=== PATIENT | female | born 1990 | race African-American/Black ===

== ENCOUNTER 2021-08-14 07:11 | Emergency (ER) | payer MEDICAID, OTHER ==
[~2021-08-14] VITALS: Ht 165.1 cm; Wt 64.0 kg
[2021-08-14] MEDS ORDERED: ONDANSETRON HCL 4MG/2ML INJ IV STA (07:39)
[2021-08-14] MEDS ORDERED: PANTOPRAZOLE SODIUM 40 MG/VIAL IV STA (07:39)
[2021-08-14] MEDS ORDERED: MORPHINE SULFATE 4 MG/ML CPJ (NOT FOR IM USE) IV STA (07:39)
[2021-08-14] MEDS ORDERED: SODIUM CHLORIDE 0.9% 1,000 ML IV ONE (07:45)
[2021-08-14 08:35] LABS: BASOPHILS % 0.1 % (0.0-2.0); HEMATOCRIT. 39.3 % (36.0-48.0); HEMOGLOBIN. 12.8 g/dL (12.0-16.0); LYMPHOCYTES % 8.4 % (20.0-50.0); MEAN CORPUSCULAR VOLUME 70.4 fL (81.0-99.0); MEAN PLATELET VOLUME 8.4 fl (7.4-10.4); MONOCYTES % 6.6 % (2.0-8.0); NEUTROPHILS % 84.9 % (40.0-76.0); PLATELET 366 x1000/uL (130-400); RED BLOOD CELL COUNT 5.57 mill/uL (4.2-5.4); RED CELL DISTRIBUTION WIDTH 15.3 % (11.6-14.6)
[2021-08-14 08:44] LABS: CHLORIDE 110 mEq/L (98-107)
[2021-08-14 08:45] LABS: HCG SCREEN NEGATIVE
[2021-08-14 08:51] LABS: ETHANOL BLOOD < 10 mg/dL
[2021-08-14] MEDS ORDERED: KETOROLAC 30MG/ML VIAL IV STA (09:24)
[2021-08-14] MEDS ORDERED: ONDANSETRON HCL 4MG/2ML INJ IV ONE (09:30)
[2021-08-14 10:00] VITALS: BP 140/64
[2021-08-14] MEDS ORDERED: IOHEXOL-300 100 ML BOTTLE ONE (10:39)
[2021-08-14] MEDS ORDERED: VISCOUS LIDOCAINE 2% 15 ML UDC PO STA (11:36)
[2021-08-14] MEDS ORDERED: MAGNESIUM/ALUMINUM HYDROXIDE/SIMETHICONE 30ML UDC PO STA (11:36)
[2021-08-14 12:10] LABS: CLARITY URINE CLEAR (CLEAR); COLOR URINE YELLOW (YELLOW); KETONES URINE 1+ (NEGATIVE); LEUKOCYTE ESTERASE URINE NEGATIVE (NEGATIVE); NITRITE URINE NEGATIVE (NEGATIVE); OCCULT BLOOD URINE 2+ (NEGATIVE); PH URINE 6.5 (4.5-8.0); PROTEIN URINE NEGATIVE (NEGATIVE); SPECIFIC GRAVITY URINE 1.057 (1.005-1.030); UROBILINOGEN URINE 0.2 E.U./dL (0.2-1.0)
[2021-08-14 12:20] LABS: *AMPHETAMINES SCREEN URINE NEGATIVE (NEGATIVE); *BARBITURATES SCREEN URINE NEGATIVE (NEGATIVE); *BENZODIAZEPINES SCREEN URINE NEGATIVE (NEGATIVE); *COCAINE SCREEN URINE NEGATIVE (NEGATIVE); METHADONE URINE SCREEN NEGATIVE (NEGATIVE); PHENCYCLIDINE URINE SCREEN NEGATIVE (NEGATIVE)
[2021-08-14 12:23] LABS: CANNABINOID URINE SCREEN PRESUMTIVE POSITIVE (NEGATIVE); OPIATES URINE SCREEN PRESUMTIVE POSITIVE (NEGATIVE)
[2021-08-14] MEDS ORDERED: ONDA4TAB11 PO (12:27)
[2021-08-14] MEDS ORDERED: IBUP-2028 MT (12:27)
[2021-08-14] MEDS ORDERED: MAG-55 MT (12:27)
[2021-08-14] MEDS ORDERED: PROT40 MT (12:27)
== END 2021-08-14 12:24 | disposition home or self-care (01) ==
LOC: ER 07:11
DX: K29.70 Gastritis, unspecified, without bleeding (principal); F12.10 Cannabis abuse, uncomplicated
CPT/HCPCS: 36415; 74177; 80053; 80305; 80320; 81003; 83690; 84703; 85025; 96361; 96374; 96375; 96376; 99285; C9113; J1885; J2270; J2405; J7030; Q9967; G0480

== ENCOUNTER 2021-08-15 16:38 | Emergency (ER) | payer MEDICAID ==
[~2021-08-15] VITALS: Ht 165.1 cm; Wt 55.0 kg
[~2021-08-15 16:38] MED LIST: IBUP-2028 MT; MAG-55 MT; ONDA4TAB11 PO; PROT40 MT
[2021-08-15] MEDS ORDERED: ONDANSETRON HCL 4MG/2ML INJ IM ONE (17:30)
[2021-08-15] MEDS ORDERED: KETOROLAC 60MG/2ML VIAL IM ONE (17:30)
[2021-08-15] MEDS ORDERED: HALOPERIDOL LACTATE 5MG/ML VIAL IM ONE (17:30)
[2021-08-15 20:05] VITALS: BP 108/63
[2021-08-15 20:18] LABS: CHLORIDE 112 mEq/L (98-107)
[2021-08-15 20:21] LABS: HCG SCREEN NEGATIVE
== END 2021-08-15 20:41 | disposition home or self-care (01) ==
LOC: ER 16:38
DX: R10.13 Epigastric pain (principal); F12.10 Cannabis abuse, uncomplicated; Z87.19 Personal history of other diseases of the digestive system; Z88.1 Allergy status to other antibiotic agents
CPT/HCPCS: 36415; 76705; 80053; 83605; 83690; 84703; 96372; 99284; J1630; J1885; J2405

== ENCOUNTER 2025-02-22 07:52 | Emergency (ER) | payer MEDICAID ==
[~2025-02-22] VITALS: Ht 160 cm; Wt 73.0 kg
[~2025-02-22 07:52] MED LIST changes: +ONDA-239 PO; -ONDA4TAB11 PO
[2025-02-22] MEDS: METOCLOPRAMIDE HCL 10MG/2ML VIAL IV ONE (08:28)
[2025-02-22] MEDS: SODIUM CHLORIDE 0.9% 1,000 ML IV ONE ×2 (08:28→11:30)
[2025-02-22] MEDS: FAMOTIDINE 20MG/2ML VIAL IV ONE (08:29)
[2025-02-22] MEDS: MORPHINE SULFATE 4 MG/ML INJ (FOR IV/IM USE) IV ONE (08:29)
[2025-02-22 08:33] LABS: BASOPHILS % 1.4 % (0.0-2.0); EOSINOPHILS % 5.7 % (0.0-5.0); HEMATOCRIT. 37.0 % (36.0-48.0); HEMOGLOBIN. 12.2 g/dL (12.0-16.0); LYMPHOCYTES % 24.6 % (20.0-50.0); MEAN PLATELET VOLUME 8.6 fl (7.4-10.4); MONOCYTES % 7.3 % (2.0-8.0); NEUTROPHILS % 61.0 % (40.0-76.0); PLATELET 291 x1000/uL (130-400); RED BLOOD CELL COUNT 5.09 mill/uL (4.2-5.4); RED CELL DISTRIBUTION WIDTH 15.6 % (11.6-14.6)
[2025-02-22] MEDS ORDERED: METHYLPREDNISOLONE 40MG/ML INJ IV ONE (08:45)
[2025-02-22 08:58] LABS: CREATININE 1.0 mg/dL (0.6-1.0)
[2025-02-22 08:59] LABS: ASPARTATE AMINOTRANSFERASE 16 IU/L (<34); PROTEIN TOTAL 6.9 g/dL (6.0-8.3); UREA NITROGEN BLOOD 11 mg/dL (9-23)
[2025-02-22 09:00] LABS: BILIRUBIN DIRECT 0.1 mg/dL (<=3.0)
[2025-02-22] MEDS ORDERED: RACEPINEPHRINE 2.25% 0.5ML NEB VIAL HHN ONE (09:00)
[2025-02-22 09:01] LABS: BILIRUBIN TOTAL 0.4 mg/dL (0.1-1.0)
[2025-02-22] MEDS: DIPHENHYDRAMINE 50MG/ML VIAL IV ONE (09:02)
[2025-02-22] MEDS: METHYLPREDNISOLONE SOD SUCC 125MG/2ML (ACT-O-VIAL) IV SCH (09:02)
[2025-02-22 09:03] VITALS: PULSE 83; RESP 14; O2SAT 100
[2025-02-22] MEDS: RACEPINEPHRINE 2.25% 0.5ML NEB VIAL HHN ONE (09:03)
[2025-02-22 09:10] LABS: HCG SCREEN NEGATIVE
[2025-02-22 09:26] LABS: B-HCG QUANTITATIVE < 1 mIU/mL (<6)
[2025-02-22 12:17] LABS: CLARITY URINE CLEAR (CLEAR); COLOR URINE YELLOW (YELLOW); GLUCOSE URINE NEGATIVE (NEGATIVE); KETONES URINE NEGATIVE (NEGATIVE); LEUKOCYTE ESTERASE URINE NEGATIVE (NEGATIVE); NITRITE URINE NEGATIVE (NEGATIVE); OCCULT BLOOD URINE NEGATIVE (NEGATIVE); PH URINE 6.0 (4.5-8.0); PROTEIN URINE NEGATIVE (NEGATIVE); SPECIFIC GRAVITY URINE 1.014 (1.005-1.030); UROBILINOGEN URINE 0.2 E.U./dL (0.2-1.0)
[2025-02-22] MEDS: KETOROLAC 15MG/ML VIAL IV ONE (12:38)
[2025-02-22 12:50] VITALS: BP 113/76; PULSE 81; RESP 22; TEMP 36.6; O2SAT 100
[2025-02-22 12:50] LABS: *AMPHETAMINES SCREEN URINE NEGATIVE (NEGATIVE)
[2025-02-22 12:51] LABS: *BARBITURATES SCREEN URINE NEGATIVE (NEGATIVE); *BENZODIAZEPINES SCREEN URINE NEGATIVE (NEGATIVE); *COCAINE SCREEN URINE PRESUMPTIVE POSITIVE (NEGATIVE); CANNABINOID URINE SCREEN PRESUMPTIVE POSITIVE (NEGATIVE); ECSTASY MDMA SCREEN URINE NEGATIVE (NEGATIVE); METHADONE URINE SCREEN NEGATIVE (NEGATIVE); OPIATES URINE SCREEN PRESUMPTIVE POSITIVE (NEGATIVE); PHENCYCLIDINE URINE SCREEN NEGATIVE (NEGATIVE)
== END 2025-02-22 12:54 | disposition home or self-care (01) ==
LOC: ER 07:52 → CANBEDREQ 12:33 → ER 12:54
DX: R10.13 Epigastric pain (principal); F12.90 Cannabis use, unspecified, uncomplicated; N89.8 Other specified noninflammatory disorders of vagina; Z79.899 Other long term (current) drug therapy; Z88.0 Allergy status to penicillin
CPT/HCPCS: 80076; 80305; 80048; 81003; 84703; 84702; 83690; 83735; 85025; 36415; 76705; 94640; 96361; 96374; 96375; 99285; J1308; J1885; J2919; J2765; J2270; J7030; Z7610 ×5; 94664

== ENCOUNTER 2025-02-26 16:39 | Emergency (ER) | payer MEDICAID ==
[~2025-02-26] VITALS: Ht 167.6 cm; Wt 95.0 kg
[2025-02-26 16:46] VITALS: TEMP 98.7; O2SAT 99
[2025-02-26] MEDS ORDERED: CAPSAICIN 0.075% CREAM 57GM TOP STA (17:39)
[2025-02-26 17:53] LABS: BASOPHILS % 0.5 % (0.0-2.0); EOSINOPHILS % 0.3 % (0.0-5.0); HEMATOCRIT. 35.4 % (36.0-48.0); HEMOGLOBIN. 11.6 g/dL (12.0-16.0); LYMPHOCYTES % 17.8 % (20.0-50.0); MEAN PLATELET VOLUME 8.5 fl (7.4-10.4); MONOCYTES % 6.8 % (2.0-8.0); NEUTROPHILS % 74.6 % (40.0-76.0); PLATELET 287 x1000/uL (130-400); RED BLOOD CELL COUNT 4.93 mill/uL (4.2-5.4); RED CELL DISTRIBUTION WIDTH 15.4 % (11.6-14.6)
[2025-02-26 18:03] LABS: CREATININE 0.9 mg/dL (0.6-1.0)
[2025-02-26 18:04] LABS: ETHANOL BLOOD < 10 mg/dL (<10); PROTEIN TOTAL 7.0 g/dL (6.0-8.3); UREA NITROGEN BLOOD 7 mg/dL (9-23)
[2025-02-26 18:05] LABS: ASPARTATE AMINOTRANSFERASE 14 IU/L (<34)
[2025-02-26 18:06] LABS: BILIRUBIN DIRECT 0.1 mg/dL (<=3.0); BILIRUBIN TOTAL 0.4 mg/dL (0.1-1.0)
[2025-02-26] MEDS: DIPHENHYDRAMINE 50MG/ML VIAL IV ONE (18:10)
[2025-02-26] MEDS: ONDANSETRON HCL 4MG/2ML INJ IV ONE (18:11)
[2025-02-26] MEDS: CAPSAICIN 0.025% CREAM 60GM TOP SCH (18:15)
[2025-02-26 18:16] LABS: HCG SCREEN NEGATIVE
[2025-02-26 18:17] VITALS: BP 111/64; PULSE 100; RESP 18
[2025-02-26] MEDS: FAMOTIDINE 20MG/2ML VIAL IV ONE (18:17)
[2025-02-26] MEDS: SODIUM CHLORIDE 0.9% 1,000 ML IV ONE (18:17)
[2025-02-26] MEDS: MORPHINE SULFATE 4 MG/ML INJ (FOR IV/IM USE) IV ONE (18:17)
[2025-02-26] MEDS: SUCRALFATE 1G TABLET PO STA (18:54)
[2025-02-26] MEDS ORDERED: SUCR1TAB30 MT (20:05)
[2025-02-26] MEDS ORDERED: FAMO-135 MT (20:05)
[2025-02-26 20:22] LABS: COLOR URINE YELLOW (YELLOW); GLUCOSE URINE NEGATIVE (NEGATIVE); KETONES URINE 2+ (NEGATIVE); LEUKOCYTE ESTERASE URINE TRACE (NEGATIVE); NITRITE URINE NEGATIVE (NEGATIVE); OCCULT BLOOD URINE 3+ (NEGATIVE); PH URINE 7.0 (4.5-8.0); PROTEIN URINE 1+ (NEGATIVE); SPECIFIC GRAVITY URINE 1.014 (1.005-1.030); UROBILINOGEN URINE 0.2 E.U./dL (0.2-1.0)
[2025-02-26] MEDS ORDERED: TOPUD PO (20:30)
[2025-02-26 20:31] LABS: *AMPHETAMINES SCREEN URINE NEGATIVE (NEGATIVE); *BARBITURATES SCREEN URINE NEGATIVE (NEGATIVE); *BENZODIAZEPINES SCREEN URINE NEGATIVE (NEGATIVE); *COCAINE SCREEN URINE NEGATIVE (NEGATIVE); CANNABINOID URINE SCREEN PRESUMPTIVE POSITIVE (NEGATIVE); ECSTASY MDMA SCREEN URINE NEGATIVE (NEGATIVE); METHADONE URINE SCREEN NEGATIVE (NEGATIVE); OPIATES URINE SCREEN PRESUMPTIVE POSITIVE (NEGATIVE); PHENCYCLIDINE URINE SCREEN NEGATIVE (NEGATIVE)
[2025-02-26 20:44] LABS: CLARITY URINE HAZY (CLEAR)
[2025-02-26 20:47] LABS: BACTERIA URINE 1+; RBC URINE 0-2 /hpf (0-2); SQUAMOUS EPITHELIAL CELL URINE 2+ /lpf (RARE/1+)
[2025-02-26 20:52] LABS: MUCUS URINE 1+ /lpf (< = 2+)
== END 2025-02-26 20:56 | disposition home or self-care (01) ==
LOC: ER 16:39
DX: K29.70 Gastritis, unspecified, without bleeding (principal); F19.10 Other psychoactive substance abuse, uncomplicated; Z09 Encounter for follow-up examination after completed treatment for conditions other than malignant neoplasm; Z79.899 Other long term (current) drug therapy; Z87.19 Personal history of other diseases of the digestive system; Z88.0 Allergy status to penicillin; Z88.8 Allergy status to other drugs, medicaments and biological substances
CPT/HCPCS: 99284; 96374; 96375; 96361; 80076; 80305; 80048; 81003; 84703; 83690; 85025; 36415; 93005; G0480; J1200; J1308; J2405; J2270; J7030; 80320

== ENCOUNTER 2025-02-27 11:16 | Emergency (ER) | payer MEDICAID ==
[~2025-02-27] VITALS: Ht 170.2 cm; Wt 91.0 kg
[~2025-02-27 11:16] MED LIST changes: +FAMO-135 MT; +SUCR1TAB30 MT; +TOPUD PO
[2025-02-27 11:21] VITALS: O2SAT 99
[2025-02-27 11:54] LABS: BASOPHILS % 0.9 % (0.0-2.0); EOSINOPHILS % 1.6 % (0.0-5.0); HEMATOCRIT. 36.1 % (36.0-48.0); HEMOGLOBIN. 11.8 g/dL (12.0-16.0); LYMPHOCYTES % 29.3 % (20.0-50.0); MEAN PLATELET VOLUME 8.3 fl (7.4-10.4); MONOCYTES % 8.5 % (2.0-8.0); NEUTROPHILS % 59.7 % (40.0-76.0); PLATELET 310 x1000/uL (130-400); RED BLOOD CELL COUNT 5.03 mill/uL (4.2-5.4); RED CELL DISTRIBUTION WIDTH 15.1 % (11.6-14.6)
[2025-02-27] MEDS: PANTOPRAZOLE SODIUM 40 MG/VIAL IV ONE (11:55)
[2025-02-27] MEDS: METOCLOPRAMIDE HCL 10MG/2ML VIAL IV ONE (11:55)
[2025-02-27] MEDS: KETOROLAC 30MG/ML VIAL IV ONE (11:56)
[2025-02-27] MEDS: SODIUM CHLORIDE 0.9% 1,000 ML IV ONE (11:56)
[2025-02-27] MEDS: DICYCLOMINE HCL 10MG/ML 2ML VIAL IM ONE (12:12)
[2025-02-27] MEDS: SUCRALFATE 1G TABLET PO SCH (12:12)
[2025-02-27 12:13] LABS: CREATININE 1.0 mg/dL (0.6-1.0)
[2025-02-27 12:14] LABS: ETHANOL BLOOD < 10 mg/dL (<10); PROTEIN TOTAL 6.9 g/dL (6.0-8.3); UREA NITROGEN BLOOD 6 mg/dL (9-23)
[2025-02-27 12:15] LABS: ASPARTATE AMINOTRANSFERASE 16 IU/L (<34)
[2025-02-27 12:16] LABS: BILIRUBIN DIRECT 0.1 mg/dL (<=3.0); BILIRUBIN TOTAL 0.4 mg/dL (0.1-1.0)
[2025-02-27 12:44] LABS: HCG SCREEN NEGATIVE
[2025-02-27 13:10] VITALS: BP 143/118; PULSE 76; RESP 12; TEMP 37.3; O2SAT 99
== END 2025-02-27 13:24 | disposition home or self-care (01) ==
LOC: ER 11:16
DX: R10.20 Pelvic and perineal pain unspecified side (principal); Z79.899 Other long term (current) drug therapy; Z88.0 Allergy status to penicillin
CPT/HCPCS: 80076; 80048; 80320; 84703; 83690; 85025; 36415; 96365; 96372; 96375; 99284; J0500; J1885; J2765; J2470; J7030; G0480